=== PATIENT | female | born 1990 | race Caucasian/White ===

== ENCOUNTER 2018-02-02 11:42 | Emergency (ER) | payer BC ==
[2018-02-02] MEDS ORDERED: HYDROmorphONE 2 MG/ML SYG IM (12:16)
[2018-02-02] MEDS: ONDANSETRON (ODT) 4 MG TAB ODT (12:27)
[2018-02-02] MEDS: HYDROmorphONE 1 MG/5 ML IV SYRINGE IV (12:31)
[2018-02-02] MEDS: LORAZEPAM 2 MG INJ IV (13:46)
== END 2018-02-02 15:14 | disposition home or self-care (01) ==
LOC: E/R 11:42
DX: R04.0 Epistaxis (principal); J45.909 Unspecified asthma, uncomplicated; Z87.891 Personal history of nicotine dependence
CPT/HCPCS: 96374; 99284-25

== ENCOUNTER 2018-02-03 01:22 | Emergency (ER) | payer BC ==
[2018-02-03] MEDS: LORAZEPAM 2 MG INJ IM (02:24)
== END 2018-02-03 07:41 | disposition home or self-care (01) ==
LOC: E/R 01:22
DX: R04.0 Epistaxis (principal)
CPT/HCPCS: 96372; 99284-25